=== PATIENT | female | born 1985 | race Caucasian/White ===

== ENCOUNTER 2017-06-07 21:38 | Emergency (ER) | payer SELFPAY ==
[2017-06-08] MEDS ORDERED: Adacel (T-DAP) 0.5 ML VIAL ONE (00:49)
== END 2017-06-08 03:30 | disposition home or self-care (01) ==
LOC: ERS 21:38
DX: F10.129 Alcohol abuse with intoxication, unspecified (principal); K58.9 Irritable bowel syndrome, unspecified; F32.9 Major depressive disorder, single episode, unspecified
CPT/HCPCS: 90715; 96360